=== PATIENT | female | born 1995 | race Caucasian/White ===

== ENCOUNTER 2017-01-08 21:46 | Emergency (ER) | payer SELFPAY ==
[2017-01-08 23:06] VITALS: BMI 39.8
--- NOTE | 2017-01-08 23:34 | ED PDOC ---
Arrival/HPI - General Chief Complaint: Abdominal Pain Time Seen by Provider: 01/08/17 21:52 Historian: Patient - History of Present Illness Narrative History of Present Illness (Text): 01/08/17 23:31 Carine Galdamez is a 21 year old G1:P0 female who presents to the emergency department because she was concerned that "baby was not moving" for past few days. States she is 25w 2d , and does not have any care yet. Denies any vaginal bleeding, discharge, abdominal pain, or any other complaints at this time. Severity Level: Mild Activities at Onset: Light Past Medical History - Provider Review Nursing Documentation Reviewed: Yes - Travel History If Yes, travel location?: [place] - Past History Past History: No Previous - Infectious Disease Hx of Infectious Diseases: None - Tetanus Immunization Tetanus Immunization: Unknown - Past Medical History Past Medical History: No Previous - Gastrointestinal Hx Gastrointestinal Disorders: No - Genitourinary/Gynecological Hx Genitourinary Disorders: No - Psychiatric Hx Depression: No Hx Emotional Abuse: No Hx Physical Abuse: No Hx Substance Use: No - Past Surgical History Past Surgical History: No Previous - Suicidal Assessment Feels Threatened In Home Enviroment: No Family/Social History - Physician Review Nursing Documentation Reviewed: Yes Family/Social History: No Known Family HX Smoking Status: Never Smoked Hx Alcohol Use: No Hx Substance Use: No Hx Substance Use Treatment: No Allergies/Home Meds Allergies/Adverse Reactions: Allergies No Known Allergies Allergy (Verified 10/28/13 02:53) Review of Systems - Physician Review All systems were reviewed & negative as marked: Yes - Review of Systems Constitutional: Normal. absent: Fatigue, Fevers Respiratory: Normal. absent: SOB, Cough Gastrointestinal: absent: Abdominal Pain, Diarrhea, Nausea, Vomiting Neurological: absent: Headache, Dizziness Physical Exam Vital Signs Reviewed: Yes Vital Signs Temp Pulse Resp BP Pulse Ox 01/08/17 21:48 98.1 F 85 16 139/70 100 Temperature: Afebrile Blood Pressure: Normal Pulse: Regular Respiratory Rate: Normal Appearance: Positive for: Well-Appearing, Non-Toxic, Comfortable Pain Distress: None Mental Status: Positive for: Alert and Oriented X 3 - Systems Exam Head: Present: Atraumatic, Normocephalic Pupils: Present: PERRL Conjunctiva: Present: Normal Mouth: Present: Moist Mucous Membranes Respiratory/Chest: Present: Clear to Auscultation, Good Air Exchange. No: Respiratory Distress, Accessory Muscle Use Cardiovascular: Present: Regular Rate and Rhythm, Normal S1, S2. No: Murmurs Abdomen: Present: Normal Bowel Sounds. No: Tenderness, Distention, Peritoneal Signs Upper Extremity: Present: Normal Inspection. No: Cyanosis, Edema Lower Extremity: Present: Normal Inspection. No: Edema Neurological: Present: GCS=15, CN II-XII Intact, Speech Normal, Motor Func Grossly Intact, Normal Sensory Function Skin: Present: Warm, Dry, Normal Color. No: Rashes Psychiatric: Present: Alert, Oriented x 3, Normal Insight, Normal Concentration Medical Decision Making ED Course and Treatment: 01/08/17 23:34 Impression: A 21 year old female who presents to the emergency department because she was concerned that her "baby was not moving" Plan: -- Ultrasound -- Reassess and disposition Progress Notes: 01/09/17 00:31 US shows single viable IUP. - Lab Interpretations I have reviewed the lab results: Yes - RAD Interpretation Narrative RAD Interpretations (Text): EXAM: US After First Trimester, Transabdominal FINDINGS: Fetus: Single live intrauterine gestation. Heart rate: heart rate of 144 beats per minute. Presentation: Cephalic. Placenta: Posterior. No placenta previa or abruption. Amniotic fluid: Normal. Anatomy: No gross anomaly is appreciated. BIOMETRICS Gestational age by US: Estimated gestational age of 25 weeks 3 days by measurements. EFW: Estimated weight of 709 g. BPD: 6.6 cm, correlating with 26 weeks 4 days. HC: 24.6 cm, correlating with 26 weeks 5 days. AC: 20.0 cm, correlating with 24 weeks 4 days. FL: 4.2 cm, correlating with 23 weeks 5 days. MATERNAL: Uterus: Unremarkable. No myometrial mass. Cervix: No cervical dilatation or effacement. Free fluid: No free fluid. IMPRESSION: 1. Single live intrauterine gestation. 2. Incidental/non-acute findings are described above. EXAM: US , Transvaginal FINDINGS: Fetus: Single live intrauterine gestation. Heart rate: heart rate of 144 beats per minute. Presentation: Cephalic. Placenta: Posterior. No placenta previa or abruption. Amniotic fluid: Normal. Anatomy: No gross anomaly is appreciated. BIOMETRICS Gestational age by US: Estimated gestational age of 25 weeks 3 days by measurements. EFW: Estimated weight of 709 g. BPD: 6.6 cm, correlating with 26 weeks 4 days. HC: 24.6 cm, correlating with 26 weeks 5 days. AC: 20.0 cm, correlating with 24 weeks 4 days. FL: 4.2 cm, correlating with 23 weeks 5 days. MATERNAL: Uterus: Unremarkable. No myometrial mass. Cervix: No cervical dilatation or effacement. Free fluid: No free fluid. IMPRESSION: 1. Single live intrauterine gestation. 2. Incidental/non-acute findings are described above. Dictated and Authenticated by: Tyler Owens MD Radiology Orders: 01/08/17 23:30 AGE [US] Stat Folder Operator: Radiologist - Scribe Statement David Baird Provider Attestation: Provider Scribe Attestation: All medical record entries made by the Scribe were at my direction and personally dictated by me. I have reviewed the chart and agree that the record accurately reflects my personal performance of the history, physical exam, medical decision making, and the department course for this patient. I have also personally directed, reviewed, and agree with the discharge instructions and disposition. Disposition/Present on Arrival - Present on Arrival Any Indicators Present on Arrival: No History of DVT/PE: No History of Uncontrolled Diabetes: No Urinary Catheter: No History of Decub. 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
--- NOTE | 2017-01-09 00:29 | US ---
EXAM: US After First Trimester, Transabdominal CLINICAL HISTORY: 21 years old, female; Signs and symptoms; Lmp or gestational age (in weeks): 07/18/2016; Other: Decreased movement; TECHNIQUE: Real-time transabdominal obstetrical ultrasound of the maternal pelvis and a second or third trimester with image documentation. COMPARISON: No relevant prior studies available. FINDINGS: Fetus: Single live intrauterine gestation. Heart rate: heart rate of 144 beats per minute. Presentation: Cephalic. Placenta: Posterior. No placenta previa or abruption. Amniotic fluid: Normal. Anatomy: No gross anomaly is appreciated. BIOMETRICS Gestational age by US: Estimated gestational age of 25 weeks 3 days by measurements. EFW: Estimated weight of 709 g. BPD: 6.6 cm, correlating with 26 weeks 4 days. HC: 24.6 cm, correlating with 26 weeks 5 days. AC: 20.0 cm, correlating with 24 weeks 4 days. FL: 4.2 cm, correlating with 23 weeks 5 days. MATERNAL: Uterus: Unremarkable. No myometrial mass. Cervix: No cervical dilatation or effacement. Free fluid: No free fluid. IMPRESSION: 1. Single live intrauterine gestation. 2. Incidental/non-acute findings are described above. EXAM: US , Transvaginal CLINICAL HISTORY: 21 years old, female; Signs and symptoms; Lmp or gestational age (in weeks): 07/18/2016; Other: Decreased movement; TECHNIQUE: Real-time endovaginal obstetrical ultrasound of the maternal pelvis and second or third trimester with image documentation. Endovaginal imaging was used for better evaluation of the cervix. COMPARISON: No relevant prior studies available. FINDINGS: Fetus: Single live intrauterine gestation. Heart rate: heart rate of 144 beats per minute. Presentation: Cephalic. Placenta: Posterior. No placenta previa or abruption. Amniotic fluid: Normal. Anatomy: No gross anomaly is appreciated. BIOMETRICS Gestational age by US: Estimated gestational age of 25 weeks 3 days by measurements. EFW: Estimated weight of 709 g. BPD: 6.6 cm, correlating with 26 weeks 4 days. HC: 24.6 cm, correlating with 26 weeks 5 days. AC: 20.0 cm, correlating with 24 weeks 4 days. FL: 4.2 cm, correlating with 23 weeks 5 days. MATERNAL: Uterus: Unremarkable. No myometrial mass. Cervix: No cervical dilatation or effacement. Free fluid: No free fluid.
[2017-01-09 00:57] VITALS: BP 139/70; PULSE 85; RESP 16; O2SAT 100
[2017-01-09 00:59] VITALS: TEMP 98.1
== END 2017-01-09 01:17 | disposition home or self-care (01) ==
LOC: ED 21:46
DX: O26.892 Other specified pregnancy related conditions, second trimester (principal); Z3A.25 25 weeks gestation of pregnancy